=== PATIENT | male | born 1950 ===

== ENCOUNTER 2021-06-22 08:28 | Outpatient (CLI) | payer MEDICARE, BC ==
[2021-06-22 10:02] LABS: Hemoglobin 14.5 g/dL (13.5-17.5); Mean Corpuscular HGB CONC 32.9 g/dL (32.0-36.0); Mean Corpuscular Hemoglobin 32.2 pg (27.0-33.0); Mean Platelet Volume 9.7 fl (7.4-10.4); Platelet Count 223 10x3/uL (150-450); RBC Distribution Width 11.9 % (11.5-14.5); White Blood Cell (WBC) Count 7.7 10x3/uL (3.5-10.5)
[2021-06-22 10:27] LABS: INR-International Normal Ratio 0.9; PTT 23.2 sec (22.0-33.0); Prothrombin Time 9.7 sec (9.5-12.1)
[2021-06-22 10:44] LABS: Anion Gap 14 mmol/L (10-20); BUN (Urea Nitrogen) 9 mg/dL (8.4-25.7); Calc. Creatinine Clearance 0 mL/min (70-130); Calcium 9.6 mg/dL (7.8-10.44); Carbon Dioxide 30 mmol/L (23-31); Chloride 101 mmol/L (98-107); Glucose 109 mg/dL (80-115); Sodium 141 mmol/L (136-145)
[2021-06-22 21:46] LABS: SARS-CoV-2 PCR by NAA Not Detected (NotDetected)
== END 2021-06-22 08:29 | disposition home or self-care (01) ==
LOC: LABBT 08:28
PROVIDERS: ATTEND Neurological Surgery
DX: Z01.818 Encounter for other preprocedural examination (principal); M50.121 Cervical disc disorder at C4-C5 level with radiculopathy; Z20.822 Contact with and (suspected) exposure to COVID-19
CPT/HCPCS: 80048; 85027; 85610; 85730; 93005; U0003; U0005; 93010

== ENCOUNTER 2021-06-23 05:33 | Day surgery (SDC) | payer MEDICARE, BC ==
[2021-06-19 15:30] VITALS: BMI 31.4
[2021-06-23] MEDS ORDERED: Neomycin-Polymyxin 1 ML AMP ONE (06:10)
[2021-06-23] MEDS ORDERED: Thrombin 5000 UNITS/5 ML VIAL ONE (06:10)
[2021-06-23] MEDS ORDERED: Fentanyl 250 MCG/5 ML VIAL ONE ×2 (06:31→10:10)
[2021-06-23] MEDS ORDERED: Vancomycin 1 GM/200 ML BAG ONE (06:36)
[2021-06-23] MEDS ORDERED: Levofloxacin 500 mg/D5W 100 ml Premix Bag ONE (06:52)
[2021-06-23] MEDS ORDERED: Vecuronium 10 MG VIAL ONE (07:29)
[2021-06-23] MEDS ORDERED: Ondansetron PF 4 MG/2 ML Vial ONE ×2 (07:29→10:32)
[2021-06-23] MEDS ORDERED: Lidocaine 1% PF 5 ML VIAL ONE (07:29)
[2021-06-23] MEDS ORDERED: GLYCOPYRROLATE/PF 0.2 MG/ML VIAL ONE (07:29)
[2021-06-23] MEDS ORDERED: PROPOFOL 200 MG/20 ML VIAL ONE (07:29)
[2021-06-23] MEDS ORDERED: Dexamethasone 20 MG/5 ML VIAL ONE (07:29)
[2021-06-23] MEDS ORDERED: Promethazine HCl 25 MG/ML VIAL ONE (10:41)
[2021-06-23] MEDS ORDERED: traMADol HCl 50 MG TAB ONE (11:43)
== END 2021-06-23 14:00 | disposition home or self-care (01) ==
LOC: SDC 05:33
PROVIDERS: ATTEND Neurological Surgery
PROC: 0RG10A0 Fusion of Cervical Vertebral Joint with Interbody Fusion Device, Anterior Approach, Anterior Column, Open Approach (ICD-10-PCS; principal; 2021-06-23)
DX: M50.121 Cervical disc disorder at C4-C5 level with radiculopathy (principal); I10 Essential (primary) hypertension; E78.5 Hyperlipidemia, unspecified; G89.4 Chronic pain syndrome; E66.9 Obesity, unspecified; Z68.31 Body mass index [BMI] 31.0-31.9, adult; Z87.891 Personal history of nicotine dependence; Z79.1 Long term (current) use of non-steroidal anti-inflammatories (NSAID); Z79.899 Other long term (current) drug therapy; Z88.0 Allergy status to penicillin; Z88.1 Allergy status to other antibiotic agents; Z88.5 Allergy status to narcotic agent
CPT/HCPCS: 76000; C1713; C1776; J1100; J1956; J2405; J2550; J2704; J3010; J3370; J3490